=== PATIENT | female | born 1965 | race Caucasian/White ===

== ENCOUNTER 2022-07-04 10:22 | Emergency (ER) | payer SELFPAY ==
[~2022-07-04] VITALS: Ht 170.2 cm; Wt 85.0 kg
[2022-07-04 10:52] VITALS: BP 136/84
[2022-07-04] MEDS ORDERED: HYDR-4902 PO ×2 (10:58→11:00)
== END 2022-07-04 11:19 | disposition home or self-care (01) ==
LOC: ER 10:22
DX: G89.29 Other chronic pain (principal); M54.59 Other low back pain; Z76.0 Encounter for issue of repeat prescription